=== PATIENT | male | born 1940 | race Caucasian/White ===

== ENCOUNTER → 2019-01-23 | Day surgery (SDC) | payer MEDICARE, OTHER ==
[~2019-01-23] MED LIST: ALLOPURINOL100 MG PO; CIALIS20 MG PO; CYCLOBENZAPRINE10 MG PO; FLOMAX0.4 MG PO; FOLIC ACID0.4 MG PO; LABETALOL HCL 0 ML ONE; LOSARTAN HCTZ PO; OMEPRAZOLE40 MG PO; PROPOFOL IV EMULSION 10 MG/ML 50 ML VIAL ONE; ULTRAM50 MG PO
--- OUTSIDE RECORDS SUMMARY | 2019-01-23 11:16 | XMS REPORT ---
Author Author [facility] Address Unknown Phone Unavailable Care Team Providers Care Card Table Attendant Name Role Phone Unavailable Unavailable Payers Payer Name Policy Type Policy Number Effective Date Expiration Date Problems This patient has no known problems. Allergies, Adverse Reactions, Alerts Allergy Name Allergy Type Status Severity Reaction(s) Onset Date Inactive Date Treating Clinician Comments codeine DA Active SV 2017-08-11 00:00:00 hydrocodone DA Active SV 2017-08-11 00:00:00 celecoxib DA Active SV 2017-08-11 00:00:00 pregabalin DA Active U 2017-08-11 00:00:00 Medications This patient has no known medications.
[2019-01-23 14:10] VITALS: BP 150/89
--- NOTE | 2019-01-23 18:44 | Operative Report ---
DATE OF PROCEDURE: SURGEON: Lee Borjas MD PROCEDURE PERFORMED: Esophagogastroduodenoscopy. PREOPERATIVE DIAGNOSIS: History of Cook esophagus. 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 Biopsies were carefully obtained, avoided the varices, however, only 2 biopsies were obtained at this point. Hiatal hernia was present. PROCEDURE IN DETAIL: The stomach was insufflated with air and the mucosa present in the cardia, fundus, body, and antrum was viewed. 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 Random biopsy was obtained in the antrum looking for the H. pylori infection. The pylorus visualized anterior. The duodenal bulb and postbulbar duodenum were found to be within normal limits. The endoscope was then withdrawn back up to the stomach, back up into the esophagus, hypopharynx, oropharynx, and out of the patient's mouth and procedure was ended. 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 Lee Borjas MD SAF/MODL /[id number]
== END | disposition home or self-care (01) ==
LOC: OR 11:05
PROVIDERS: ATTEND Internal Medicine Gastroenterology
DX: D50.9 Iron deficiency anemia, unspecified (principal); K22.719 Barrett's esophagus with dysplasia, unspecified; Z88.5 Allergy status to narcotic agent; Z88.8 Allergy status to other drugs, medicaments and biological substances; K76.0 Fatty (change of) liver, not elsewhere classified; I10 Essential (primary) hypertension; R79.89 Other specified abnormal findings of blood chemistry; K59.00 Constipation, unspecified; R63.4 Abnormal weight loss; K64.8 Other hemorrhoids; K44.9 Diaphragmatic hernia without obstruction or gangrene; D12.6 Benign neoplasm of colon, unspecified; K21.0 Gastro-esophageal reflux disease with esophagitis; K57.90 Diverticulosis of intestine, part unspecified, without perforation or abscess without bleeding; I85.00 Esophageal varices without bleeding; Z01.810 Encounter for preprocedural cardiovascular examination; K29.50 Unspecified chronic gastritis without bleeding
CPT/HCPCS: 43239; 93005; J2704